=== PATIENT | female | born 1955 | race Caucasian/White ===

== ENCOUNTER 2016-12-07 11:39 | Emergency (ER) | payer MEDICAID ==
[2016-12-07 11:53] VITALS: PULSE 99; RESP 16
--- NOTE | 2016-12-07 13:08 | EDPHY ---
H & P Stated Complaint: HURT BACK 13 DAYS AGO, WHEN PUTTING GRANDSON IN [place]B Time Seen by Provider: 12/07/16 13:08 - Personal History Current Tetanus Diphtheria and Acellular Pertussis (TDAP): Yes Tetanus Vaccine Date: last 10 years - Medical/Surgical History Hx Asthma: No Hx Chronic Respiratory Disease: No Hx Diabetes: No Hx Cardiac Disease: No Hx Renal Disease: No Hx Cirrhosis: No Hx Alcoholism: No Hx HIV/AIDS: No Hx Splenectomy or Spleen Trauma: No Other PMH: hypothyroid. hypertension. depression. chronic pain - Social History Smoking Status: Heavy smoker Constitutional: Initial Vital Signs Temperature (C) 37.1 C 12/07/16 11:50 Heart Rate 99 12/07/16 11:50 Respiratory Rate 16 12/07/16 11:50 Blood Pressure 144/97 H 12/07/16 11:50 O2 Sat (%) 93 12/07/16 11:50 O2 Delivery Mode Room Air Allergies/Adverse Reactions: No Known Allergies Allergy (Verified 08/05/13 12:41) Home Medications: Medication Instructions Recorded Hydrochlorothiazide 08/05/13 Levothyroxine 08/05/13 Prozac 10 MG (RX) 08/05/13 AZITHROMYCIN [Z-PACK] 250 mg PO DAILY #1 packet 12/12/15 Albuterol [Proventil Inhaler] 1 - 2 puffs IH Q4 #1 mdi 12/12/15 Hydrocodone/APAP 5/325 [[place] 1 - 2 each PO Q4-6PRN PRN #20 tab 12/12/15 5/325] Meloxicam 7.5 mg PO DAILY 12/12/15 predniSONE 40 mg PO DAILY #10 tab 12/12/15 Medical Decision Making ED Course/Re-evaluation: CHIEF COMPLAINT: Back pain HISTORY OF PRESENT ILLNESS: The patient is a 61 y/o female with a history of sciatica who presents with worsening chronic back pain for the last 13 days. She is recovering from rotator cuff surgery. She was leaning over a crib while putting her grandson to bed and twisted her back. The pain was initially on her left upper back, but has since radiated towards the right side. Last night she noticed an acute pain to her lower back, which was painful on palpation. She has had difficulty lying on her back due to pain. She denies falling, any trauma to her back, dyspnea, chest pain, paresthesias, weakness, fever, and abdominal pain. She has been unable to get into her back specialist until next week and her pain has become too severe to manage at home. REVIEW OF SYSTEMS: A 10 point review of systems was performed and is negative with the exception of the elements mentioned in the history of present illness. PHYSICAL EXAM: HR, BP, O2 Sat, RR. Temp noted General Appearance: Alert, well hydrated, appropriate, and non-toxic appearing. Head: Atraumatic without scalp tenderness or obvious injury Eyes: Pupils equal, round, reactive to light and accommodation, EOMI, no trauma , no injection. Nose: Atraumatic, no rhinorrhea, clear. Throat: Mucus membranes moist. Neck: Supple, nontender. Respiratory: No retractions, no distress, no wheezes, and no accessory muscle use. Lungs are clear to auscultation bilaterally. Cardiovascular: Regular rate and rhythm, no murmurs, rubs, or gallops. Good capillary refill all extremities. Gastrointestinal: Abdomen is soft, nontender, non-distended, no masses, no rebound, no guarding, no peritoneal signs. Musculoskeletal: Normal active ROM of all extremities, atraumatic. Back: Tenderness to left periscapular muscles and directly over L2-3 with overlying contusion. Neurological: Alert, appropriate, and interactive. Nonfocal neuro exam. Skin: No rashes, good turgor, no nodules on palpation. Past medical history: Sciatica, chronic back pain, hypertension, hypothyroid Past surgical history: Rotator cuff surgery Family history: Noncontributory Social history: , lives in [place], un-employed Prior medical records reviewed including ED note 12/12/15 for cough. DIAGNOSTICS/PROCEDURES/CRITICAL CARE TIME: Non-contrast Lumbar spine CT: DIFFERENTIAL DIAGNOSIS: The differential diagnosis for the patient's back pain included but was not limited to contusion, musculoskeletal pain, epidural abscess, herniated disk, spinal fracture, and intra-abdominal causes including urinary system. MEDICAL DECISION MAKING: The patient is a 61 y/o female who presents with a 13 day history of worsening, but chronic back pain. Last night she noticed acute pain over her L2-3 vertebrae , but denies any preceding trauma. On exam, she has a contusion overlying L2-3 and tenderness to her left periscapular muscles. Plan for a lumbar spine CT to rule out acute osseous abnormality and manage pain. 2 tabs PO Percocet administered. Reassessed patient and discussed imaging findings. CT does not show any acute findings. Patient will be discharged with standard back pain instructions, prescription for OxyIR, and referral to neurosurgery, Dr. Eb Quinn. Discussed return precautions. Patient is comfortable with this plan. - Data Points Medications Given: Discontinued Medications Oxycodone/Acetaminophen (Percocet 5/325) 2 tab PO EDNOW ONE Stop: 12/07/16 13:29 Last Admin: 12/07/16 13:45 Dose: 2 tab Departure - Departure Disposition: Home, Routine, Self-Care Clinical Impression: Back pain Qualifiers: Back pain location: back pain in other location Chronicity: chronic Qualified Code(s): M54.9 - Dorsalgia, unspecified Contusion Qualifiers: Encounter type: initial encounter Contusion area: lower back Qualified Code(s) : S30.0XXA - Contusion of lower back and pelvis, initial encounter Condition: Good Instructions: Contusion in Adults (ED), Back Pain (ED) Additional Instructions: 1. Take 600mg of ibuprofen every 6-8 as needed for pain for the next 2-3 days. 2. Apply ice to sore areas 3. Take OxyIR as prescribed, when needed for severe pain. 4. Follow up with back specialist, Dr. Quinn, in the next week for unimproved symptoms. 5. Return to the ED for severe pain, weakness or numbness in an extremity, numbness to genitals, incontinence, and fever. Referrals: [id number] [Other] - As per Instructions Ada Quinn MD [Medical Doctor] - As per Instructions Report Scribed for: Rob Marino Report Scribed by: Sara Moore Date of Report: 12/07/16 Time of Report: 13:34
[2016-12-07] MEDS ORDERED: OXYCODONE/APAP 5/325 TAB PO ONE (13:28)
[2016-12-07 14:36] VITALS: BP 130/78; TEMP 98.2; O2SAT 98
== END 2016-12-07 14:35 | disposition home or self-care (01) ==
DX: S30.0XXA Contusion of lower back and pelvis, initial encounter (principal); I10 Essential (primary) hypertension; F17.200 Nicotine dependence, unspecified, uncomplicated; X58.XXXA Exposure to other specified factors, initial encounter

== ENCOUNTER 2017-12-24 | Emergency (ER) | payer MEDICAID | END 2017-12-24 11:03 | disposition home or self-care (01) | DX: J44.1 Chronic obstructive pulmonary disease with (acute) exacerbation (principal); F17.200 Nicotine dependence, unspecified, uncomplicated | CPT/HCPCS: 84484-PO; 96374; J2930; J7613 ==